=== PATIENT | female | born 1950 | race Caucasian/White ===

== ENCOUNTER 2016-08-19 14:58 | Day surgery (SDC) | payer MEDICARE, OTHER ==
[~2016-08-19] VITALS: Ht 162.6 cm; Wt 118.0 kg
[~2016-08-19 14:58] MED LIST: ALBU8.5H2 INHALATION; ALPR0.254 PO; AMLO5TAB2 PO; ATEN50TA PO; CALC100O TP; HYDR25TA4 PO; LOSA25TA21 PO
[2016-08-19] MEDS ORDERED: Propofol 10,000 mCg/mL 20 mL Inj ONE (14:59)
[2016-08-19] MEDS ORDERED: OMEP20TA86 PO (15:15)
[2016-08-19 15:17] VITALS: BP 136/67; PULSE 78; RESP 14; O2SAT 97
[2016-08-19] MEDS: Lactated Ringer's 1,000 ML IV ONE ×2 (15:41→15:56)
[2016-08-19 16:07] VITALS: BP 140/78; PULSE 76; RESP 16; O2SAT 96
[2016-08-19 16:17] VITALS: BP 148/66; PULSE 72; RESP 16; O2SAT 95
--- NOTE | 2016-08-19 16:41 | ENDO ---
[address] [address] ENDOSCOPY PROCEDURE PATIENT: AVELINO FRENCH : 1950 MR#: [id number] ADMIT: 08/19/2016 JOB ID: [id number] DATE: 08/19/2016 PROCEDURE: Esophagogastroduodenoscopy. INDICATION: Melena. Please see Dr. Jose Soto's anesthesia report for details regarding ASA classification, Mallampati score and medications. INSTRUMENT USED: GIF H 180 J. PROCEDURE DETAILS: After informed consent was obtained, the patient was brought into the GI suite, where she was placed on oxygen via nasal cannula and monitored with continuous pulse oximeter, telemetry, and blood pressure monitoring. A time-out was performed. Then, she was placed in a left lateral decubitus position and medications were administered for sedation. A bite block was placed. The standard EGD scope was inserted through the bite block and advanced under direct visualization to the second portion of the duodenum without difficulty. FINDINGS: 1. Normal appearing duodenal bulb, first and second portion. 2. Normal-appearing gastric body. Retroflexed views in the gastric body revealed changes consistent with the patient's history of gastric band placement. On retroflexed views, there appeared to be a herniated portion of stomach possibly through the band. At the mouth of the herniation, there was a clean based 4-5 mm ulcer. Biopsies were obtained there. 3. Random biopsies were also obtained in the stomach as well. 4. The GE junction was slightly irregular at 40 cm. There was a gastric pouch from 40 cm to 51 cm and then there appeared to be normal appearing stomach from 51 cm to the pylorus which we measured at approximately 80 cm. 5. The esophagus was unremarkable. IMPRESSION: 1. A clean based ulcer at the site of herniation of the fundus of the stomach which from through the gastric band I presume. 2. Changes consistent with gastric band placement. RECOMMENDATIONS: 1. Continue PPI. 2. Repeat EGD in 8-12 weeks to document ulcer healing. COMPLICATIONS: None. ESTIMATED BLOOD LOSS: Less than 5 mL. Upper GI barium to evaluate patient's anatomy regarding herniated portion of fundus and will consider referral to Bariatric Surgery.
--- NOTE | 2016-08-19 17:46 | PCM.ANEP1 ---
Post Anesthesia Phase 1 PACU Phase 1 Assessment Vital Signs Vital Signs Date Time Temp Pulse Resp B/P Pulse Ox O2 Delivery O2 Flow Rate FiO2 08/19/16 16:17 72 16 148/66 95 Room Air 08/19/16 16:07 76 16 140/78 96 Room Air 08/19/16 15:17 37.2 78 14 136/67 97 Room Air Anesthetic Administered: MAC Level of Alertness: Awake, talking ALONZO's with Equal Strength: Yes Pain: No Nausea or Vomiting: No Oxygen Delivery: Room Air Lungs: Clear to Auscultation, Normal Air Movement Dermatome Level: Full Sensation Jose Soto MD Aug 19, 2016 17:46
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
--- NOTE | 2016-08-19 17:47 | PCM.ANEP2 ---
Post Anesthesia Evaluation ASA/CMS Post Anesthesia VS in Patient's Normal Range?: Yes Resp Stable; Airway Patent?: Yes CV Function & Hydration Stable: Yes Mental Status Recovered?: Yes Pain control Satisfactory?: Yes N/V Control Satisfactory?: Yes Jose Soto MD Aug 19, 2016 17:47
--- NOTE | 2016-08-24 14:27 | PATH ---
SURGICAL PATHOLOGY Attending Physician:Hellen Wallace CASE STATUS: Signed Out PATIENT NAME: AVELINO FRENCH PID: [id number] : 1950 DATE COLLECTED:08/19/2016 00:00 SPECIMEN: 1: Gastric, Biopsy 2: Gastric, Biopsy CLINICAL HISTORY: 1). GASTRIC ULCER BIOPSY 2). GASTRIC BIOPSY FINAL DIAGNOSIS: A. Gastric Ulcer, Biopsy:Gastric corpus and antrum with chronic active gastritis. Negative for Helicobacter organisms. Negative for intestinal metaplasia. No evidence of malignancy or dysplasia. B Gastric Biopsy: Gastric corpus with mild chronic gastritis. Negative for Helicobacter organisms. Negative for intestinal metaplasia. No evidence of malignancy or dysplasia. ICD10: K29.70 GROSS DESCRIPTION: The specimen is received in two formalin filled containers labeled with the patient's name. 1). The specimen is sublabeled "gastric ulcer" and consists of 2 portions of tissue or debris which aggregate to 0.2 x 0.2 x 0.2 CM. The specimen is entirely submitted in cassette 1A. 2). The specimen is sublabeled "gastric" and consists of 2 portions of tissue which aggregate to 0.4 x 0.3 x 0.2 CM. The specimen is entirely submitted in cassette 2A. 08/20/2016 DAC MICRO DESCRIPTION: A) The lamina propria of the gastric antrum and corpus is expanded by modest numbers of acute and chronic inflammatory cells. One fragment of inflammatory exudate is also found. An immunostain for Helicobacter organisms is done because of the acute inflammation and is negative. ICD-9 CODES: CPT CODES: 1: 64934, 54648, 41939 2: 48707 Electronically Signed Out Dimitry Valdez MD [facility] [address], [place] [address] Technical component performed at [facility], [facility] [address], [place], [address]
== END 2016-08-19 23:59 | disposition home or self-care (01) ==
LOC: END 14:58
PROVIDERS: ATTEND Internal Medicine Gastroenterology
DX: K29.50 Unspecified chronic gastritis without bleeding (principal); K25.9 Gastric ulcer, unspecified as acute or chronic, without hemorrhage or perforation; Z98.84 Bariatric surgery status; K92.1 Melena; I10 Essential (primary) hypertension; G47.30 Sleep apnea, unspecified; Z79.1 Long term (current) use of non-steroidal anti-inflammatories (NSAID)
CPT/HCPCS: 43239; J7120

== ENCOUNTER 2016-11-04 07:38 | Day surgery (SDC) | payer MEDICARE, OTHER ==
[~2016-11-04] VITALS: Ht 162.6 cm; Wt 117.9 kg
[~2016-11-04 07:38] MED LIST changes: +0.9% Sodium Chloride 1,000 ML IV SCH; -HYDR25TA4 PO; -LOSA25TA21 PO; +OMEP20TA86 PO; +Sodium Chloride LOK Flush 10 mL Syringe IV PRN; +fentaNYL-PF 50 mCg/mL 2 mL Inj IVPUSH PRN
[2016-11-04 07:51] VITALS: BP 136/77; PULSE 72; RESP 14; O2SAT 99
[2016-11-04] MEDS ORDERED: CLOB15CR3 TOP (07:56)
[2016-11-04] MEDS ORDERED: LOSA100T29 PO (07:56)
[2016-11-04] MEDS ORDERED: 0.9% Sodium Chloride 1,000 ML IV ONE (08:03)
[2016-11-04 08:58] VITALS: BP 143/77; PULSE 69; RESP 16; O2SAT 93
[2016-11-04 09:08] VITALS: BP 142/73; PULSE 70; RESP 14; O2SAT 94
[2016-11-04 09:18] VITALS: BP 140/75; PULSE 63; RESP 16; O2SAT 97
--- NOTE | 2016-11-04 10:14 | ENDO ---
[address] [address] ENDOSCOPY PROCEDURE PATIENT: AVELINO FRENCH : 1950 MR#: [id number] ADMIT: 11/04/2016 JOB ID: [id number] DATE: 11/04/2016 PROCEDURE: Esophagogastroduodenoscopy. INDICATION: The patient with a history of a gastric ulcer. The patient also has a history of gastric band placement for weight loss. The patient's ASA classification is 2. Mallampati score is 2. MEDICATIONS: 1. Versed 4 mg. 2. Fentanyl 100 mcg. INSTRUMENT USED: GIF H 180 J. PROCEDURE DETAILS: After informed consent was obtained, the patient was brought into the GI suite, where she was placed on oxygen via nasal cannula and monitored with continuous pulse oximeter, telemetry and blood pressure monitoring. A time-out was performed and then she was placed in a left lateral decubitus position and medications were administered for sedation. A bite block was placed. The standard EGD scope was inserted through the bite block and advanced under direct visualization to the second portion of the duodenum without difficulty. FINDINGS: 1. Normal appearing duodenal bulb, first and second portion. Bile-stained mucosa was noted throughout the examined portions of the duodenum. 2. Normal appearing pylorus and antrum. 3. Retroflexed views in the gastric body revealed changes consistent with patient's history of gastric band placement. We did see a herniated portion of the stomach through the band. 4. At the mouth of the hernia where previously seen 4-5 mm clean based ulcer was noted, there was a scar noted but no further evidence of ulcer. 5. The GE junction was regular at approximately 40 cm. 6. The gastric pouch extended from 50 cm to 40 cm proximally. 7. The esophagus appeared unremarkable. IMPRESSION: 1. Healed ulcer at the herniation of the fundus of the stomach. 2. Changes consistent with gastric band placement. 3. Followup with Dr. Blanquita Rahman. COMPLICATIONS: None. ESTIMATED BLOOD LOSS: 0.
== END 2016-11-04 23:59 | disposition home or self-care (01) ==
LOC: END 07:38
PROVIDERS: ATTEND Internal Medicine Gastroenterology
DX: K25.9 Gastric ulcer, unspecified as acute or chronic, without hemorrhage or perforation (principal); Z98.84 Bariatric surgery status; G47.30 Sleep apnea, unspecified; I10 Essential (primary) hypertension; F41.9 Anxiety disorder, unspecified; E66.9 Obesity, unspecified; Z68.42 Body mass index [BMI] 45.0-49.9, adult; Z96.653 Presence of artificial knee joint, bilateral; Z90.710 Acquired absence of both cervix and uterus; Z79.51 Long term (current) use of inhaled steroids
CPT/HCPCS: 43235; J7030

== ENCOUNTER 2017-01-03 17:53 | Emergency (ER) | payer OTHER, MEDICARE ==
[~2017-01-03] VITALS: Ht 162.6 cm; Wt 104.5 kg
[~2017-01-03 17:53] MED LIST changes: -0.9% Sodium Chloride 1,000 ML IV SCH; -ALBU8.5H2 INHALATION; -ATEN50TA PO; -CALC100O TP; +CLOB15CR3 TOP; +LOSA100T29 PO; -Sodium Chloride LOK Flush 10 mL Syringe IV PRN; -fentaNYL-PF 50 mCg/mL 2 mL Inj IVPUSH PRN
[2017-01-03 18:06] VITALS: BP 132/73; PULSE 80; RESP 18; O2SAT 100
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
[2017-01-03] MEDS ORDERED: HYDROmorphone 1 mg/mL Inj IM ONE (18:45)
[2017-01-03] MEDS ORDERED: Ondansetron 8 mg ODT Tablet PO ONE (18:45)
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
[2017-01-03] MEDS ORDERED: HYDROcodone-APAP 5-325 mg Tablet PO ONE (21:05)
[2017-01-03] MEDS ORDERED: _HYDROcodone/APAP 5-325 mg Tablet PO PRN (21:05)
[2017-01-03] MEDS ORDERED: HYDR-4003 PO (21:06)
[2017-01-03 21:30] VITALS: BP 136/68; PULSE 82; RESP 18; O2SAT 97
== END 2017-01-03 21:31 | disposition home or self-care (01) ==
LOC: EDBD 17:53 → SED 17:54
DX: S16.1XXA Strain of muscle, fascia and tendon at neck level, initial encounter (principal); S39.012A Strain of muscle, fascia and tendon of lower back, initial encounter; S46.912A Strain of unspecified muscle, fascia and tendon at shoulder and upper arm level, left arm, initial encounter; V53.5XXA Driver of pick-up truck or van injured in collision with car, pick-up truck or van in traffic accident, initial encounter; Y93.9 Activity, unspecified; Y92.410 Unspecified street and highway as the place of occurrence of the external cause; Y99.9 Unspecified external cause status; Z87.19 Personal history of other diseases of the digestive system; I10 Essential (primary) hypertension; Z90.710 Acquired absence of both cervix and uterus; Z90.49 Acquired absence of other specified parts of digestive tract; Z79.899 Other long term (current) drug therapy; Z88.0 Allergy status to penicillin; Z88.5 Allergy status to narcotic agent; Z91.018 Allergy to other foods
CPT/HCPCS: 72125; 72131; 73030; 96372; 99284; J1170

== ENCOUNTER 2017-03-15 09:59 | Emergency (ER) | payer OTHER, MEDICARE ==
[~2017-03-15 09:59] MED LIST changes: +HYDR-4003 PO
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
[2017-03-15] MEDS ORDERED: 0.9% Sodium Chloride 1,000 ML IV ONE (10:06)
[2017-03-15] MEDS ORDERED: Ondansetron 2 mg/mL 2 mL Inj IVPUSH PRN (10:10)
[2017-03-15 10:12] LABS: BASOPHILS % (AUTO) 0.3 % (0-3); EOSINOPHILS % (AUTO) 3.2 % (0-5); MONOCYTES % (AUTO) 8.1 % (4-12); Mean Corpuscular Hemoglobin 28.9 pg (27.0-35.0); Mean Corpuscular Volume 86.5 fL (81-100); NEUTROPHILS % (AUTO) 60.9 % (40-74); Platelet Count 246 bil/L (150-400)
[2017-03-15 10:44] LABS: INR 0.94 ratio
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
[2017-03-15 11:58] VITALS: BP 142/74; PULSE 76; RESP 16; O2SAT 99
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
[2017-03-15] MEDS ORDERED: CYCL10TA9 PO (13:05)
[2017-03-15 13:14] VITALS: BP 142/74; PULSE 76; RESP 16; O2SAT 99
== END 2017-03-15 13:15 | disposition home or self-care (01) ==
LOC: SED 09:59
DX: S16.1XXA Strain of muscle, fascia and tendon at neck level, initial encounter (principal); S20.211A Contusion of right front wall of thorax, initial encounter; S00.03XA Contusion of scalp, initial encounter; M25.511 Pain in right shoulder; V49.50XA Passenger injured in collision with unspecified motor vehicles in traffic accident, initial encounter; Y93.89 Activity, other specified; Y99.8 Other external cause status; Y92.410 Unspecified street and highway as the place of occurrence of the external cause; I10 Essential (primary) hypertension; Z87.19 Personal history of other diseases of the digestive system; Z90.49 Acquired absence of other specified parts of digestive tract; Z96.653 Presence of artificial knee joint, bilateral; Z88.0 Allergy status to penicillin; Z88.5 Allergy status to narcotic agent
CPT/HCPCS: 36415; 70450; 71010; 71260; 72125; 73030; 74177; 80053; 85025; 85610; 85730; 86850; 96361; 96374; 99291; G0390; J2405; J7030; Q9967